=== PATIENT | female | born 1965 | race African-American/Black ===

== ENCOUNTER 2017-08-27 22:03 | Emergency (ER) | payer OTHER ==
[~2017-08-27] VITALS: Ht 167.6 cm; Wt 80.0 kg
[2017-08-27 22:30] VITALS: BP 149/65; PULSE 91; RESP 14; O2SAT 96
[2017-08-27 22:38] VITALS: RESP 14; O2SAT 96
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
[2017-08-27 23:19] LABS: AUTOMATED NEUTROPHIL # 4.1 TH/MM3 (1.8-7.7); BASOPHIL % 0.7 % (0.0-2.0); EOSINOPHIL # 0.2 TH/MM3 (0-0.4); EOSINOPHIL % 2.4 % (0.0-4.0); HEMATOCRIT 32.9 % (35.0-46.0); HEMOGLOBIN 11.4 GM/DL (11.6-15.3); MEAN CORPUSCULAR HEMOGLOBIN 30.2 PG (27.0-34.0); MEAN CORPUSCULAR HGB CONC 34.8 % (32.0-36.0); MEAN PLATELET VOLUME 8.9 FL (7.0-11.0); MONO % 4.5 % (0.0-8.0); MONOCYTE # 0.3 TH/MM3 (0-0.9); NEUT % 62.4 % (16.0-70.0); PLATELET COUNT 272 TH/MM3 (150-450); RED BLOOD COUNT 3.79 MIL/MM3 (4.00-5.30); RED CELL DISTRIBUTION WIDTH 14.2 % (11.6-17.2); WHITE BLOOD COUNT 6.5 TH/MM3 (4.0-11.0)
[2017-08-27 23:30] LABS: PROTHROMBIN TIME - PATIENT 10.3 SEC (9.8-11.6)
[2017-08-27] MEDS ORDERED: METOCLOPRAMIDE HCL 10 MG/2 ML VIAL IV PUSH ONE (23:30)
[2017-08-27] MEDS ORDERED: MORPHINE SULFATE 2 MG/ML SYRINGE IV PUSH ONE (23:30)
[2017-08-27] MEDS ORDERED: NOVOINJ2 SQ ×2 (23:35)
[2017-08-27 23:44] LABS: TROPONIN I 0.02 NG/ML (0.02-0.05)
[2017-08-27 23:51] LABS: BICARBONATE 22.1 MEQ/L (21.0-32.0); CALCIUM 8.8 MG/DL (8.5-10.1); CREATININE 3.72 MG/DL (0.50-1.00)
[2017-08-28] MEDS ORDERED: MORPHINE SULFATE 4 MG/ML INJ IV PUSH ONE ×2 (00:45→02:00)
[2017-08-28] MEDS ORDERED: ONDANSETRON ODT 4 MG TAB PO ONE (01:00)
[2017-08-28 01:07] VITALS: BP 138/77; PULSE 80; RESP 18; O2SAT 99
[2017-08-28 02:52] LABS: BILIRUBIN, URINE NEG (NEG); BLOOD, URINE SMALL (NEG); GLUCOSE,URINE TRACE mg/dL (NEG); HYALINE CAST, URINE 6 /lpf (RARE); KETONE, URINE NEG (NEG); MUCUS URINE FEW /lpf (OCC); NITRITE,URINE NEG (NEG); SQUAMOUS EPITHELIAL CELL URINE 1 /hpf (0-5); URINE COLOR LIGHT-YELLOW (YELLW/STRAW); URINE LEUKOCYTE ESTERASE NEG (NEG)
[2017-08-28 03:50] VITALS: BP 165/75; PULSE 85; RESP 18; O2SAT 96
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
[2017-08-28] MEDS ORDERED: ROBA750T PO (04:25)
[2017-08-28] MEDS ORDERED: ZOFR4TAB3 SL (04:25)
[2017-08-28] MEDS ORDERED: PERC5TAB12 PO (04:25)
--- NOTE | 2017-08-28 14:53 | EKG ---
Date Performed: 08/27/2017 Time Performed: 23:40:08 PTAGE: 52 years EKG: Sinus rhythm WITH FIRST DEGREE AV BLOCK POSSIBLE ANTERIOR MYOCARDIAL INFARCTION ABNORMAL ECG NO PREVIOUS TRACING DOCTOR: Bogdan Mcrae Interpretating Date/Time 08/28/2017 14:51:27
== END 2017-08-28 05:04 | disposition home or self-care (01) ==
LOC: NEPC 22:03
DX: S30.1XXA Contusion of abdominal wall, initial encounter (principal); S20.219A Contusion of unspecified front wall of thorax, initial encounter; I12.0 Hypertensive chronic kidney disease with stage 5 chronic kidney disease or end stage renal disease; E11.22 Type 2 diabetes mellitus with diabetic chronic kidney disease; N18.5 Chronic kidney disease, stage 5; R07.89 Other chest pain; V89.2XXA Person injured in unspecified motor-vehicle accident, traffic, initial encounter; Z79.4 Long term (current) use of insulin
CPT/HCPCS: 70450; 71045; 72125; 74176; 80048; 81001; 84484; 85025; 85610; 85730; 86850; 86900; 86901; 93005; 96374; 96376; 99285; J2270